=== PATIENT | male | born 1965 | race Caucasian/White ===

== ENCOUNTER 2017-08-09 22:09 | Emergency (ER) | payer OTHER ==
[2017-08-09] MEDS ORDERED: Phenergan 25 MG INJ IV ONE (22:28)
[2017-08-09] MEDS ORDERED: Sodium Chloride 0.9% 1000 ML 1,000 ML IV SCH (22:30)
--- NOTE | 2017-08-09 22:40 | ERPHSYRPT ---
- History of Present Illness Time Seen by Provider: 08/09/17 22:23 Source: patient Exam Limitations: no limitations Physician History: FOR THE PAST 3 HOURS AFTER DRINKING THREE MONSTER ENERGY DRINKS PT HAS HAD TINGLING AND GENERALIZED WEAKNESS IN HIS EXTREMITIES; DENIES CHEST PAIN, SHORTNESS OF AIR, ABDOMINAL PAIN; ADMITS TO NAUSEA AND DRY HEAVES. Allergies/Adverse Reactions: pregabalin [From Lyrica] Allergy (Verified 08/09/17 22:15) Home Medications: B/P Med Unknown Name 08/09/17 [History] Gabapentin [Neurontin] 800 mg PO TID 08/09/17 [History] Hydrocodone Bit/Acetaminophen [Hydrocodon-Acetaminoph 7.5-325] 1 each PO [History] Hx Tetanus, Diphtheria Vaccination/Date Given: Yes Hx Influenza Vaccination/Date Given: No Hx Pneumococcal Vaccination/Date Given: No - Review of Systems Constitutional: Weakness (GENERALIZED) Abdominal/Gastrointestinal: Nausea, Other (DRY HEAVES) Neurological: Sensory Changes (TINGLING IN EXTREMITIES) All Other Systems: Reviewed and Negative - Past Medical History Pertinent Past Medical History: Yes Neurological History: No Pertinent History ENT History: No Pertinent History Cardiac History: No Pertinent History Respiratory History: COPD, Emphysema Endocrine Medical History: No Pertinent History Musculoskeletal History: No Pertinent History, Osteoporosis, Other GI Medical History: No Pertinent History History: No Pertinent History Psycho-Social History: Depression Male Reproductive Disorders: No Pertinent History Other Medical History: Chronic back pain - Past Surgical History Past Surgical History: Yes Neuro Surgical History: No Pertinent History Cardiac: No Pertinent History Respiratory: No Pertinent History Gastrointestinal: No Pertinent History Genitourinary: No Pertinent History Musculoskeletal: Orthopedic Surgery Male Surgical History: No Pertinent History Other Surgical History: multiple back surgeries - traumatic injury of the feet. JAW BROKE A CHILD-6 MONTHS IN A W/C - Social History Smoking Status: Current every day smoker Exposure to second hand smoke: No Drug Use: none Patient Lives Alone: No - Nursing Vital Signs Nursing Vital Signs: Initial Vital Signs Temperature 97.6 F 08/09/17 22:19 Pulse Rate 94 H 08/09/17 22:19 Respiratory Rate 20 08/09/17 22:19 Blood Pressure 155/85 08/09/17 22:19 O2 Sat by Pulse Oximetry 98 08/09/17 22:19 Pain Scale Pain Intensity 0 - Physical Exam General Appearance: alert, anxiety Eye Exam: PERRL/EOMI Ears, Nose, Throat Exam: TMs normal, moist mucous membranes, pharyngeal erythema Neck Exam: normal inspection Respiratory Exam: lungs clear Cardiovascular Exam: normal heart sounds Gastrointestinal/Abdomen Exam: soft, normal bowel sounds Back Exam: normal range of motion Extremity Exam: normal inspection, No pedal edema Neurologic Exam: alert, cooperative Skin Exam: other (FACE FLUSHED) - Course Nursing assessment & vital signs reviewed: Yes EKG Interpreted by Me: RATE (64), Sinus Rhythm, NORMAL AXIS, NORMAL INTERVALS - Radiology Exams Chest X-ray Interpretation: Interpreted by me, No Pneumonia - CT Exams Head CT Interpretation: Tele-radiologist Report (NO ACUTE FINDINGS) Ordered Tests: Active Orders 24 hr Category Date Time Status Order Dispatcher STAT Care 08/09/17 22:31 Active Clean Catch Urine Specimen STAT Care 08/09/17 22:28 Active EKG-ER Only STAT Care 08/09/17 22:28 Active IV Insertion STAT Care 08/09/17 22:28 Active Pulse Oximetry (ED) STAT Care 08/09/17 22:28 Active CHEST 2 VIEWS (PA AND LAT) Stat Exams 08/09/17 22:31 Taken HEAD WITHOUT CONTRAST [CT] Stat Exams 08/09/17 22:34 Taken AMYLASE Stat Lab 08/09/17 22:40 Completed CBC W DIFF Stat Lab 08/09/17 22:40 Completed CMP Stat Lab 08/09/17 22:40 Completed ETHYL ALCOHOL Stat Lab 08/09/17 22:40 Completed LIPASE Stat Lab 08/09/17 22:40 Completed MAGNESIUM Stat Lab 08/09/17 22:40 Completed NT PRO BNP Stat Lab 08/09/17 22:40 Completed TROPONIN Q3H Lab 08/09/17 22:40 Completed TROPONIN Q3H Lab 08/10/17 01:30 Ordered TROPONIN Q3H Lab 08/10/17 04:30 Ordered TROPONIN Q3H Lab 08/10/17 07:30 Ordered TROPONIN Q3H Lab 08/10/17 10:30 Ordered UA W/RFX UR CULTURE Stat Lab 08/09/17 23:30 Completed Urine Triage Profile Stat Lab 08/09/17 23:30 Completed Medication Summary Generic Name Dose Route Start Last Admin Trade Name Freq PRN Reason Stop Dose Admin Sodium Chloride 1,000 mls @ 100 mls/hr 08/09/17 22:30 08/09/17 22:47 Sodium Chloride 0.9% 1000 Ml IV 09/08/17 22:29 100 mls/hr .Q10H IVETTE Administration Magnesium Oxide 400 mg 08/10/17 10:00 Mag-Ox 400 PO 09/09/17 09:59 BID IVETTE Discontinued Medications Generic Name Dose Route Start Last Admin Trade Name Cierra PRN Reason Stop Dose Admin Promethazine HCl 12.5 mg 08/09/17 22:28 08/09/17 22:47 Phenergan 25 Mg Inj IV 08/09/17 22:29 12.5 mg STAT ONE Administration Promethazine HCl Confirm 08/09/17 22:44 Phenergan 25 Mg Inj Administered 08/09/17 22:45 Dose 25 mg .ROUTE .STK-MED ONE Lab/Rad Data: Laboratory Result Diagrams 08/09/17 22:40 08/09/17 22:40 Laboratory Results 08/09/17 08/09/17 08/09/17 Range/Units 23:30 23:30 22:40 WBC (4.0-10.5) K/mm3 RBC (4.1-5.6) M/mm3 Hgb (12.5-18.0) gm/dl Hct (42-50) % MCV (78-100) fl MCH (26-32) pg MCHC (32-36) g/dl RDW (11.5-14.0) % Plt Count (150-450) K/mm3 MPV (6-9.5) fl Gran % (36.0-66.0) % Lymphocytes % (24.0-44.0) % Monocytes % (0.0-12.0) % Eosinophils % (0.00-5.0) % Basophils % (0.0-0.4) % Basophils # (0-0.4) Sodium (136-145) mEq/L Potassium (3.5-5.1) mEq/L Chloride (98-107) mEq/L Carbon Dioxide (21-32) mEq/L Anion Gap (5-15) MEQ/L BUN (9-20) mg/dL Creatinine (0.55-1.30) mg/dl Estimated GFR ML/MIN Glucose (70-110) MG/DL Calcium (8.5-10.1) mg/dL Magnesium (1.8-2.4) mg/dL Total Bilirubin (0.2-1.0) mg/dL AST (15-37) U/L ALT (12-78) U/L Alkaline Phosphatase (46-116) U/L Troponin I < 0.017 (0.000-0.056) ng/ml NT-Pro-B Natriuret Pep (0-125) pg/ml Serum Total Protein (6.4-8.2) gm/dL Albumin (3.4-5.0) g/dL Amylase (25-115) U/L Lipase (73-393) U/L Ur Collection Type CLEAN CATCH Urine Color JOSE ELIAS (YELLOW) Urine Appearance CLEAR (CLEAR) Urine pH 5.0 (5-6) Ur Specific Greene 1.015 (1.005-1.025) Urine Protein NEGATIVE (Negative) Urine Ketones NEGATIVE (NEGATIVE) Urine Blood NEGATIVE (0-5) Luis Daniel/ul Urine Nitrite NEGATIVE (NEGATIVE) Urine Bilirubin NEGATIVE (NEGATIVE) Urine Urobilinogen NORMAL (0-1) mg/dL Ur Leukocyte Esterase NEGATIVE (NEGATIVE) Urine Glucose NEGATIVE (NEGATIVE) mg/dL Urine Opiates Level NEG. (NEGATIVE) Ur Methadone NEG. (NEGATIVE) Urine Barbiturates NEG. (NEGATIVE) Ur Phencyclidine (PCP) NEG. (NEGATIVE) Urine Amphetamine NEG. (NEGATIVE) U Benzodiazepine Level NEG. (NEGATIVE) Urine Cocaine NEG. (NEGATIVE) Urine Marijuana (THC) NEG. (NEGATIVE) Ethyl Alcohol (0.00-0.01) % Specimen Received 08/09/17:0710 08/09/17 08/09/17 Range/Units 22:40 22:40 WBC 14.9 H (4.0-10.5) K/mm3 RBC 5.27 (4.1-5.6) M/mm3 Hgb 18.6 H (12.5-18.0) gm/dl Hct 52.1 H (42-50) % MCV 98.9 (78-100) fl MCH 35.2 H (26-32) pg MCHC 35.7 (32-36) g/dl RDW 15.3 H (11.5-14.0) % Plt Count 314 (150-450) K/mm3 MPV 9.8 H (6-9.5) fl Gran % 72.1 H (36.0-66.0) % Lymphocytes % 18.4 L (24.0-44.0) % Monocytes % 8.5 (0.0-12.0) % Eosinophils % 0.6 (0.00-5.0) % Basophils % 0.4 (0.0-0.4) % Basophils # 0.06 (0-0.4) Sodium 141 (136-145) mEq/L Potassium 3.8 (3.5-5.1) mEq/L Chloride 101 (98-107) mEq/L Carbon Dioxide 17.9 L (21-32) mEq/L Anion Gap 25.4 H (5-15) MEQ/L BUN 6 L (9-20) mg/dL Creatinine 0.94 (0.55-1.30) mg/dl Estimated GFR > 60 ML/MIN Glucose 128 H (70-110) MG/DL Calcium 9.1 (8.5-10.1) mg/dL Magnesium 1.5 L (1.8-2.4) mg/dL Total Bilirubin 0.50 (0.2-1.0) mg/dL AST 53 H (15-37) U/L ALT 50 (12-78) U/L Alkaline Phosphatase 122 H (46-116) U/L Troponin I (0.000-0.056) ng/ml NT-Pro-B Natriuret Pep 29 (0-125) pg/ml Serum Total Protein 7.4 (6.4-8.2) gm/dL Albumin 3.6 (3.4-5.0) g/dL Amylase 36 (25-115) U/L Lipase 66 L (73-393) U/L Ur Collection Type Urine Color (YELLOW) Urine Appearance (CLEAR) Urine pH (5-6) Ur Specific Greene (1.005-1.025) Urine Protein (Negative) Urine Ketones (NEGATIVE) Urine Blood (0-5) Luis Daniel/ul Urine Nitrite (NEGATIVE) Urine Bilirubin (NEGATIVE) Urine Urobilinogen (0-1) mg/dL Ur Leukocyte Esterase (NEGATIVE) Urine Glucose (NEGATIVE) mg/dL Urine Opiates Level (NEGATIVE) Ur Methadone (NEGATIVE) Urine Barbiturates (NEGATIVE) Ur Phencyclidine (PCP) (NEGATIVE) Urine Amphetamine (NEGATIVE) U Benzodiazepine Level (NEGATIVE) Urine Cocaine (NEGATIVE) Urine Marijuana (THC) (NEGATIVE) Ethyl Alcohol < 0.010 (0.00-0.01) % Specimen Received - Departure Time of Disposition: 23:54 Departure Disposition: Home Clinical Impression: WEAKNESS, DYSESTHESIA, HYPOMAGNESEMIA Condition: Stable Critical Care Time: No Referrals: DOCTOR,NO FAMILY [Primary Care Provider] - Instructions: Numbness/tingling Additional Instructions: FOLLOW UP WITH PRIVATE DOCTOR TOMORROW. DO NOT DRINK "ENERGY DRINKS".
[2017-08-09] MEDS ORDERED: Phenergan 25 MG INJ ONE (22:44)
[2017-08-09] MEDS ORDERED: Sodium Chloride 0.9% 1000 ML 1,000 ML ONE (22:44)
[2017-08-09 22:48] LABS: BASOPHIL % 0.4 % (0.0-0.4); Eosinophil % 0.6 % (0.00-5.0); Granulocytes % 72.1 % (36.0-66.0); Lymphocytes % 18.4 % (24.0-44.0); Mean Cell Volume 98.9 fl (78-100); Mean Platelet Volume 9.8 fl (6-9.5); Monocytes % 8.5 % (0.0-12.0); Platelet Count 314 K/mm3 (150-450); Red Blood Count 5.27 M/mm3 (4.1-5.6); Red Cell Distribution Width 15.3 % (11.5-14.0); White Blood Count 14.9 K/mm3 (4.0-10.5)
[2017-08-09 22:50] LABS: Mean Corpuscular Hemoglobin 35.2 pg (26-32)
[2017-08-09 23:28] LABS: ALBUMIN 3.6 g/dL (3.4-5.0); ALKALINE PHOSPHATASE 122 U/L (46-116); ANION GAP 25.4 MEQ/L (5-15); BLOOD UREA NITROGEN 6 mg/dL (9-20); CHLORIDE 101 mEq/L (98-107); Carbon Dioxide 17.9 mEq/L (21-32); ETHYL ALCOHOL < 0.010 % (0.00-0.01); Glucose 128 MG/DL (70-110); LIPASE 66 U/L (73-393); MAGNESIUM 1.5 mg/dL (1.8-2.4); Potassium 3.8 mEq/L (3.5-5.1); SGOT/AST 53 U/L (15-37); SGPT/ALT 50 U/L (12-78); SODIUM 141 mEq/L (136-145); Total Protein 7.4 gm/dL (6.4-8.2)
[2017-08-09 23:36] LABS: ADD URINE CULTURE? NO (NO); Bilirubin NEGATIVE (NEGATIVE); Blood NEGATIVE Ery/ul (0-5); COMPLETE URINE MICROSCOPIC? NO; Collection Type CLEAN CATCH; Glucose NEGATIVE (NEGATIVE); Leukocyte Esterase NEGATIVE (NEGATIVE)
[2017-08-09] MEDS ORDERED: MAG-OX 400 ONE (23:57)
[2017-08-09] MEDS ORDERED: Zofran 4 MG/2 ML VIAL IV ONE (23:59)
[2017-08-10] MEDS ORDERED: Zofran 4 MG/2 ML VIAL ONE
[2017-08-10 00:27] VITALS: BP 127/75; PULSE 74; O2SAT 96
--- NOTE | 2017-08-10 08:55 | XRAY ---
Indication: Dizziness. Hyperesthesia. Comparison: None 2 view chest hyperinflated and clear. Heart is not enlarged. Vascularity normal. Bony thorax intact. Impression: Nonacute hyperinflated chest.
--- NOTE | 2017-08-10 08:57 | XRAY ---
Indication: Vomiting and gagging. Hyperesthesia. Dizziness. Multiple contiguous axial images obtained through the head without contrast. Comparison: None Normal appearing brain parenchyma, ventricles, and bony calvarium. Mild mucosal thickening of both ethmoid and lesser degree both sphenoid sinuses. Remaining visualized paranasal sinuses and mastoid air cells clear. Impression: Normal CT head without contrast exam. Incidental paranasal sinus disease. Comment: Preliminary interpretation was made by [facility]. No discrepancy. CTDI 67.80
[2017-08-10] MEDS ORDERED: MAG-OX 400 PO SCH (10:00)
== END 2017-08-10 00:30 | disposition home or self-care (01) ==
LOC: ED 22:09
DX: R53.1 Weakness (principal); R20.8 Other disturbances of skin sensation; E83.42 Hypomagnesemia; Z79.899 Other long term (current) drug therapy; Z79.891 Long term (current) use of opiate analgesic; R20.2 Paresthesia of skin; R11.0 Nausea
CPT/HCPCS: 36000; 36415; 70450; 71020; 80053; 80307; 81002; 82150; 83690; 83735; 83880; 84484; 85025; 93005; 93041; 96360; 96374; 96375; 99284; G0481; J2405; J2550; A9270-GY

== ENCOUNTER 2018-01-14 08:51 | Emergency (ER) | payer OTHER ==
--- NOTE | 2018-01-14 09:24 | ERPHSYRPT ---
- History of Present Illness Time Seen by Provider: 01/14/18 09:14 Source: patient Exam Limitations: no limitations Patient Subjective Stated Complaint: pulling up fence post yesterday and the post struck him in the left lower ribs Triage Nursing Assessment: ambulated to room per self. skin w/d, color normal, resp shallow, guarding ribs. unable to take a deep breath. Physician History: The patient is a 52-year-old male with his mother complaining of injuring his left ribs while trying to pull a wooden fence post of the ground yesterday. He bent over and pulled the square 4 x 4 wooden fence post between his left arm and his left chest and when he pulled the fence post, it slipped and struck him on the left side of his chest beneath his arm pit. He didn't sleep well all night because of the pain. It hurts to take a breath or move his trunk from side to side. His past medical history is significant for COPD. Timing/Duration: yesterday Severity: moderate Modifying Factors: Improves With: movement Associated Symptoms: denies symptoms Allergies/Adverse Reactions: pregabalin [From Lyrica] Allergy (Verified 01/14/18 09:01) Home Medications: Gabapentin [Neurontin] 800 mg PO TID 08/09/17 [History] Albuterol 2.5 mg/3 ml Neb [Proventil 2.5 mg/3 ml Neb] 2.5 mg IH QID [History] Albuterol Sulfate [Ventolin Hfa] 90 mcg IH QID 01/14/18 [History] Baclofen [Baclofen] 10 mg PO BID 01/14/18 [History] Hx Tetanus, Diphtheria Vaccination/Date Given: Yes Hx Influenza Vaccination/Date Given: Yes Hx Pneumococcal Vaccination/Date Given: No - Review of Systems Constitutional: No Fever, No Chills Eyes: No Symptoms Ears, Nose, & Throat: No Symptoms Respiratory: No Cough, No Dyspnea Cardiac: No Chest Pain, No Edema, No Syncope Abdominal/Gastrointestinal: No Abdominal Pain, No Nausea, No Vomiting, No Diarrhea Genitourinary Symptoms: No Dysuria Musculoskeletal: Injury Skin: No Rash Neurological: No Dizziness, No Focal Weakness, No Sensory Changes Psychological: No Symptoms Endocrine: No Symptoms Hematologic/Lymphatic: No Symptoms Immunological/Allergic: No Symptoms All Other Systems: Reviewed and Negative - Past Medical History Pertinent Past Medical History: Yes Neurological History: No Pertinent History ENT History: No Pertinent History Cardiac History: No Pertinent History Respiratory History: COPD, Emphysema Endocrine Medical History: No Pertinent History Musculoskeletal History: No Pertinent History, Osteoporosis, Other GI Medical History: No Pertinent History History: No Pertinent History Psycho-Social History: Depression Male Reproductive Disorders: No Pertinent History Other Medical History: Chronic back pain - Past Surgical History Past Surgical History: Yes Neuro Surgical History: No Pertinent History Cardiac: No Pertinent History Respiratory: No Pertinent History Gastrointestinal: No Pertinent History Genitourinary: No Pertinent History Musculoskeletal: Orthopedic Surgery Male Surgical History: No Pertinent History Other Surgical History: multiple back surgeries - traumatic injury of the feet. JAW BROKE A CHILD-6 MONTHS IN A W/C - Social History Smoking Status: Current every day smoker How long have you smoked: 35 Exposure to second hand smoke: No Drug Use: none Patient Lives Alone: No - Nursing Vital Signs Nursing Vital Signs: Initial Vital Signs Temperature 98.4 F 01/14/18 08:57 Pulse Rate 82 01/14/18 08:57 Respiratory Rate 16 01/14/18 08:57 Blood Pressure 129/88 01/14/18 08:57 O2 Sat by Pulse Oximetry 95 01/14/18 08:57 Pain Scale Pain Intensity 10 - Physical Exam General Appearance: mild distress Eye Exam: PERRL/EOMI, eyes nml inspection Ears, Nose, Throat Exam: normal ENT inspection, TMs normal, pharynx normal, moist mucous membranes Neck Exam: normal inspection, non-tender, supple, full range of motion Respiratory Exam: chest tenderness (tenderness to left mid lateral ribs. no bruising or swelling.), wheezing Cardiovascular Exam: regular rate/rhythm, normal heart sounds, normal peripheral pulses Gastrointestinal/Abdomen Exam: soft, normal bowel sounds, No tenderness, No mass Rectal Exam: not done Back Exam: normal inspection, normal range of motion, No CVA tenderness, No vertebral tenderness Extremity Exam: normal inspection, normal range of motion, pelvis stable Neurologic Exam: alert, oriented x 3, cooperative, normal mood/affect, nml cerebellar function, nml station & gait, sensation nml, No motor deficits Skin Exam: normal color, warm, dry, No rash Lymphatic Exam: No adenopathy SpO2 Interpretation: normal SpO2: 95 Oxygen Delivery: Room Air - Radiology Exams Chest X-ray Interpretation: Reviewed by me, Teleradiologist Report, Other (mild accentuation of interstitial lung markings in lower 2/3 each lung: mild interstitial lung disease. Per Dr Teran.) Left Ribs X-ray Interpretation: Reviewed by me, Teleradiologist Report, Non-displaced Fracture (left 4th rib fracture per DR Teran.) Ordered Tests: Active Orders 24 hr Category Date Time Status CHEST 2 VIEWS (PA AND LAT) Stat Exams 01/14/18 09:31 Completed RIBS UNILATERAL Stat Exams 01/14/18 09:30 Completed Medication Summary Discontinued Medications Generic Name Dose Route Start Last Admin Trade Name Freq PRN Reason Stop Dose Admin Ketorolac Tromethamine 60 mg 01/14/18 09:25 01/14/18 09:44 Toradol 30 Mg Injection IM 01/14/18 09:26 60 mg STAT ONE Administration Ketorolac Tromethamine Confirm 01/14/18 09:33 Toradol 30 Mg Injection Administered 01/14/18 09:34 Dose 60 mg .ROUTE .STK-MED ONE - Progress Progress: improved Counseled pt/family regarding: diagnosis, need for follow-up, rad results - Departure Time of Disposition: 10:57 Departure Disposition: Home Clinical Impression: Left rib fracture, Bronchitis Condition: Stable Critical Care Time: No Additional Instructions: You have a fracture of one of your left ribs. You also have bronchitis. You were given Toradol 60 mg by IM in the ER. Take doxycycline 100 mg 2 times a day for 10 days. Take Tessalon Perle 100 mg every 8 hours as needed for cough. Take Tylenol No. 3 one to 2 tablets every 4-6 hours as needed for pain. You may also take Tylenol and ibuprofen as needed for pain. Follow-up with local medical doctor next week. Prescriptions: Benzonatate [Tessalon Perle] 100 mg PO Q8H PRN PRN #20 capsule PRN Reason: Cough Codeine Phosphate/APAP #3 [Tylenol #3 Tablet] 1 tab PO Q4-6HPRN PRN #10 tablet PRN Reason: Pain Doxycycline Hyclate 100 mg [Vibramycin 100 MG] 1 tab PO BID #20 tab
[2018-01-14] MEDS ORDERED: TORAdol 30 mg Injection IM ONE (09:25)
[2018-01-14] MEDS ORDERED: TORAdol 30 mg Injection ONE (09:33)
--- NOTE | 2018-01-14 10:20 | XRAY ---
Exam: Two-view chest from 01/14/2018. Comparison: Two-view chest from 08/09/2017. Indication: Wheezing for the past few days. Findings: Upright PA and lateral chest films are submitted for evaluation. The heart size and contour are normal. The afshin and mediastinal structures appear unremarkable. There is some mild accentuation of the interstitial lung markings, particularly within the lower two thirds of each lung. This may reflect mild interstitial lung disease (acute or chronic). Correlate clinically. However, I see no air space infiltrates or pleural fluid. No vascular congestion or pneumothorax is seen. No acute osseous process is seen. Impression: 1. There is mild accentuation of the interstitial lung markings within lower two thirds of each lung. Consider mild interstitial lung disease (acute or chronic). I see no air space infiltrates or other active cardiopulmonary disease.
[2018-01-14 10:30] VITALS: PULSE 70
--- NOTE | 2018-01-14 10:41 | XRAY ---
Exam: 4 view left rib series (5 films) from 01/14/2018. Comparison: None. Indication: Left lower rib pain after hitting himself with a 4 x 4 post; complains of pain within the mid to lower left ribs. Findings: 2 AP images, an LPO image, an opposite oblique image, and a coned-down AP image of the left lower rib cage were obtained. On the steep LPO image, there is equivocal evidence of a subtle nondisplaced fracture at the anterior lateral aspect of the left fourth rib. I see no other definite fracture line or cortical step-off deformity to suggest a displaced fracture. No left-sided pneumothorax or pleural effusion is seen. Impression: 1. There is equivocal evidence of subtle nondisplaced cortical fracture involving the anterior lateral aspect of the left fourth rib on the steep LPO image. No other definite left rib fracture line or cortical step-off deformity to suggest a displaced fracture is seen. Note : If left rib pain persists or is more extensive than that suggested by this report, a radionuclide bone scan in 1 week could be considered.
[2018-01-14 11:16] VITALS: BP 110/78; O2SAT 97
== END 2018-01-14 11:16 | disposition home or self-care (01) ==
LOC: ED 08:51
DX: S22.32XA Fracture of one rib, left side, initial encounter for closed fracture (principal); W22.8XXA Striking against or struck by other objects, initial encounter; J40 Bronchitis, not specified as acute or chronic
CPT/HCPCS: 71046; 71100; 96372; 99284; J1885

== ENCOUNTER 2018-12-02 09:29 | Emergency (ER) | payer OTHER ==
[2018-12-02] MEDS ORDERED: Amidate 20 MG/10 ML IV ONE (09:30)
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
[2018-12-02] MEDS ORDERED: VALIUM 10 MG/2 ML SYRINGE IV ONE (09:55)
[2018-12-02] MEDS ORDERED: Sodium Chloride 0.9% 1000 ML 1,000 ML IV STA (09:55)
[2018-12-02] MEDS ORDERED: Sodium Chloride 0.9% 1000 ML 1,000 ML ONE ×2 (10:01→11:12)
[2018-12-02 10:04] LABS: BASOPHIL % 0.2 % (0.0-0.4); Basophil (Absolute #) 0.02 (0-0.4); Eosinophil % 0.6 % (0.00-5.0); Eosinophil (Absolute #) 0.07 (0-0.5); Granulocytes % 79.2 % (36.0-66.0); Hematocrit 47.3 % (42-50); Hemoglobin 16.6 gm/dl (12.5-18.0); Lymphocyte (Absolute #) 1.13 (1.0-4.6); Lymphocytes % 10.3 % (24.0-44.0); Mean Cell Volume 102.8 fl (78-100); Mean Corpuscular Hemoglobin 36.1 pg (26-32); Mean Corpuscular Hgb Concent. 35.1 g/dl (32-36); Mean Platelet Volume 10.2 fl (6-9.5); Monocyte (Absolute #) 1.07 (0.0-1.3); Monocytes % 9.7 % (0.0-12.0); Platelet Count 135 K/mm3 (150-450); Red Cell Distribution Width 15.4 % (11.5-14.0)
[2018-12-02 10:17] LABS: ALBUMIN 3.1 g/dL (3.5-5.0); ALKALINE PHOSPHATASE 267 U/L (38-126); ANION GAP 17.9 MEQ/L (5-15); BLOOD UREA NITROGEN 4 mg/dL (9-20); CHLORIDE 96 mmol/L (98-107); Calcium 8.2 mg/dL (8.4-10.2); Carbon Dioxide 20 mmol/L (22-30); Glucose 152 mg/dL (74-106); SGOT/AST 235 U/L (17-59); SODIUM 131 mmol/L (137-145); Total Protein 6.2 g/dL (6.3-8.2)
[2018-12-02] MEDS ORDERED: MORPHINE SULFATE 4 MG INJ ONE ×2 (10:17→10:52)
[2018-12-02] MEDS ORDERED: MORPHINE SULFATE 4 MG INJ IV ONE (10:18)
--- NOTE | 2018-12-02 10:22 | XRAY ---
Indication: Pain following fall. Comparison: None 2 views of the right shoulder demonstrates anterior inferior humeral head dislocation. No other bony, articular, or soft tissue abnormalities.
[2018-12-02 10:24] LABS: SGPT/ALT 100 U/L (0-50)
[2018-12-02] MEDS ORDERED: VERSED 5 MG/5 ML ONE ×2 (10:58→12:19)
--- NOTE | 2018-12-02 11:27 | XRAY ---
Indication: Post reduction. Comparison: Taken earlier in the day. Single AP right shoulder demonstrates successful reduction of previous humeral head dislocation. No other bony, articular, or soft tissue abnormalities.
--- NOTE | 2018-12-02 11:59 | XRAY ---
Indication: Pain following fall. Seizure. Multiple contiguous axial images obtained through the head without contrast. Comparison: August 09, 2017. Again normal appearing brain parenchyma, ventricles, and bony calvarium. Visualized paranasal sinuses and mastoid are cells are clear. Impression: Stable normal CT head without contrast exam. CTDI 50.75
--- NOTE | 2018-12-02 12:03 | XRAY ---
Indication: Pain following fall. Seizure. Multiple contiguous axial images obtained through the facial bones. Sagittal and coronal reformatted images obtained. Comparison: None Patient is edentulous. Nondisplaced fracture involving the spine of the maxilla. Bilateral TMJ dislocation anteriorly. No other fracture, suspicious bony lesions, or radiopaque foreign body. Orbits including roof, garay, and floors intact. Minimal mucosal thickening floor of the left maxillary sinus. Remaining paranasal sinuses and nasal passages are clear. Minimal nasal septal deviation to the left. Visualized noncontrasted soft tissues including orbits unremarkable. Visualized cervical spine intact. Impression: 1. Nondisplaced fracture spine of the maxilla. 2. Bilateral TMJ anterior dislocation. 3. Minimal left maxillary sinus disease. CTDI is 59.47
[2018-12-02] MEDS ORDERED: VERSED 5 MG/5 ML IV ONE ×2 (12:33→13:06)
--- NOTE | 2018-12-02 13:09 | XRAY ---
Indication: Postreduction TMJ dislocation. 4 views of the facial bones demonstrates stable bilateral TMJ anterior dislocation with respect to CT of the same day. Patient again edentulous with left mandible fixation wire. No other bony, articular, or soft tissue abnormalities.
[2018-12-02 13:56] VITALS: PULSE 74; O2SAT 97
[2018-12-02 14:24] VITALS: BP 124/77
--- NOTE | 2018-12-02 14:28 | XRAY ---
Indication: Status post fall. Seizure. Multiple contiguous axial images obtained through the cervical spine. Sagittal and coronal reformatted images obtained. Comparison: None Axial images negative for acute fracture, suspicious bony lesions, or spinal canal stenosis. Sagittal and coronal reformatted images demonstrates normal alignment. Minimal C5-C6 disc space narrowing. No acute compression fracture, subluxation, or jumped facet. Normal-appearing craniocervical junction. Visualized noncontrasted soft tissues unremarkable. Incidental biapical pulmonary emphysema. CT head reported separately. Impression: 1. Minimal C5-C6 degenerative disc disease and pulmonary emphysema. 2. Remaining CT cervical spine is negative. CT DI 51.42
[2018-12-02 15:16] LABS: Appearance CLEAR (CLEAR); Bilirubin NEGATIVE (NEGATIVE); Blood NEGATIVE Ery/ul (0-5); Glucose NEGATIVE (NEGATIVE); Ketones NEGATIVE (NEGATIVE); Leukocyte Esterase NEGATIVE (NEGATIVE); Mucus SLIGHT /HPF (NEGATIVE); Nitrite NEGATIVE (NEGATIVE); Protein,Urine Dip NEGATIVE (Negative); Specific Gravity 1.011 (1.005-1.025); Urobilinogen 4 mg/dL (0-1); WBC 0-2 /HPF (0-5)
[2018-12-02 15:29] LABS: Amphetamine,Urine NEGATIVE (NEGATIVE); Barbiturate,Urine NEGATIVE (NEGATIVE); Benzodiazepine,Urine POSITIVE (NEGATIVE); Cocaine,Urine NEGATIVE (NEGATIVE); Methadone,Urine NEGATIVE (NEGATIVE); Opiate,Urine POSITIVE (NEGATIVE); PCP,Urine NEGATIVE (NEGATIVE); THC,Urine NEGATIVE (NEGATIVE)
== END 2018-12-02 15:08 | disposition short-term general hospital (02) ==
LOC: ED 09:29
DX: S03.03XA Dislocation of jaw, bilateral, initial encounter (principal); S43.004A Unspecified dislocation of right shoulder joint, initial encounter; W18.39XA Other fall on same level, initial encounter; Y93.9 Activity, unspecified; R41.0 Disorientation, unspecified; R68.84 Jaw pain; M25.511 Pain in right shoulder; M54.9 Dorsalgia, unspecified; G89.29 Other chronic pain; Z79.899 Other long term (current) drug therapy; J44.9 Chronic obstructive pulmonary disease, unspecified; M81.0 Age-related osteoporosis without current pathological fracture; F32.9 Major depressive disorder, single episode, unspecified
CPT/HCPCS: 21480; 23650; 36000; 36415; 70150; 70450; 70486; 72125; 73030; 80053; 80307; 81001; 85025; 93041; 94799; 96360; 96374; 96375; 96376; 99285; J2250; J2270; J3360; G0480

== ENCOUNTER 2019-08-06 15:13 | Emergency (ER) | payer OTHER ==
[2019-08-06] MEDS ORDERED: Sodium Chloride 0.9% 1000 ML 1,000 ML IV STA ×2 (15:26→15:51)
[2019-08-06] MEDS ORDERED: Zofran 4 MG/2 ML VIAL IV ONE (15:26)
[2019-08-06] MEDS ORDERED: PROTONIX 40 MG IV*** 80 MG in Sodium Chloride 0.9% 500 ML 500 ML IV SCH (15:30)
[2019-08-06] MEDS ORDERED: Sodium Chloride 0.9% 500 ML 500 ML IV ONE (15:32)
[2019-08-06] MEDS ORDERED: Zofran 4 MG/2 ML VIAL ONE (15:32)
[2019-08-06] MEDS ORDERED: PROTONIX 40 MG IV IV ONE (15:32)
[2019-08-06] MEDS ORDERED: Sodium Chloride 0.9% 1000 ML 1,000 ML ONE ×2 (15:33→15:53)
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
[2019-08-06 15:46] LABS: Lactic Acid 3.6 (0.4-2.0)
[2019-08-06 15:53] LABS: BASOPHIL % 0.5 % (0.0-0.4); Basophil (Absolute #) 0.05 (0-0.4); Eosinophil % 1.8 % (0.00-5.0); Granulocyte Absolute (ANC) 6.61 (1.4-6.9); Hematocrit 38.1 % (42-50); Hemoglobin 13.1 gm/dl (12.5-18.0); Lymphocyte (Absolute #) 3.43 (1.0-4.6); Lymphocytes % 31.2 % (24.0-44.0); Mean Cell Volume 104.4 fl (78-100); Mean Corpuscular Hgb Concent. 34.4 g/dl (32-36); Mean Platelet Volume 9.2 fl (6-9.5); Monocyte (Absolute #) 0.72 (0.0-1.3); Monocytes % 6.5 % (0.0-12.0); Platelet Count 356 K/mm3 (150-450); Red Blood Count 3.65 M/mm3 (4.1-5.6); Red Cell Distribution Width 15.3 % (11.5-14.0)
[2019-08-06 15:55] LABS: Mean Corpuscular Hemoglobin 35.8 pg (26-32)
[2019-08-06 16:03] LABS: PROTIME 11.3 SECONDS (8.83-12.87)
[2019-08-06 16:06] LABS: ALKALINE PHOSPHATASE 116 U/L (38-126); ANION GAP 13.8 MEQ/L (5-15); BLOOD UREA NITROGEN 14 mg/dL (9-20); CHLORIDE 105 mmol/L (98-107); Calcium 8.5 mg/dL (8.4-10.2); Carbon Dioxide 20 mmol/L (22-30); Creatinine 1 0.65 mg/dL (0.66-1.25); Glucose 143 mg/dL (74-106); Potassium 3.4 mmol/L (3.5-5.1); SGOT/AST 38 U/L (17-59); SGPT/ALT 28 U/L (0-50); SODIUM 136 mmol/L (137-145); Total Protein 6.1 g/dL (6.3-8.2)
[2019-08-06 16:29] VITALS: O2SAT 99
[2019-08-06 16:44] LABS: ABO TYPING O; Antibody Screen NEGATIVE (NEGATIVE); RH TYPING POSITIVE
[2019-08-06 17:41] LABS: Appearance CLEAR (CLEAR); Bilirubin NEGATIVE (NEGATIVE); Blood NEGATIVE Ery/ul (0-5); Glucose NEGATIVE (NEGATIVE); Ketones NEGATIVE (NEGATIVE); Leukocyte Esterase NEGATIVE (NEGATIVE); Mucus SLIGHT /HPF (NEGATIVE); Nitrite NEGATIVE (NEGATIVE); Protein,Urine Dip NEGATIVE (Negative); Specific Gravity 1.032 (1.005-1.025); Urobilinogen NEGATIVE mg/dL (0-1); WBC 0-2 /HPF (0-5)
[2019-08-06 18:00] LABS: Bacteria NONE SEEN /HPF (NEGATIVE)
[2019-08-06 18:10] LABS: Amphetamine,Urine NEGATIVE (NEGATIVE); Barbiturate,Urine NEGATIVE (NEGATIVE); Benzodiazepine,Urine NEGATIVE (NEGATIVE); Cocaine,Urine NEGATIVE (NEGATIVE); Methadone,Urine NEGATIVE (NEGATIVE); Opiate,Urine NEGATIVE (NEGATIVE); PCP,Urine NEGATIVE (NEGATIVE); THC,Urine NEGATIVE (NEGATIVE)
[2019-08-06 18:52] VITALS: BP 108/69; PULSE 76
--- NOTE | 2019-08-06 20:23 | XRAY ---
Indication: Hematemesis. Multiple contiguous axial images obtained through the abdomen and pelvis using 100 cc Isovue 370 contrast only. Comparison: September 11, 2016. Lungs grossly clear. Heart is not enlarged. Stomach is stented with food/fluid. Small bowel loops again demonstrates mild diffuse fluid distention with fluid leveling, ileus versus enteritis. No free fluid/air. Stable 2 cm left lobe hepatic hemangioma and calcified splenic granulomas. Remaining liver, gallbladder, pancreas, spleen, adrenal glands, kidneys, ureters, and bladder appear unremarkable. There remains mild aortoiliac calcifications. No AAA or pathological retroperitoneal lymphadenopathy. Osseous structures intact again with L4-S1 fusion surgery and laminectomy. Impression: 1. New diffuse fluid distended small bowel loops with fluid leveling, ileus versus enteritis. 2. Stable hepatic hemangioma and evidence for old granulomatous disease. Comment: Preliminary interpretation was made by [facility]. No critical discrepancy. CTDI 10.06
== END 2019-08-06 19:43 | disposition short-term general hospital (02) ==
LOC: ED 15:13
DX: K92.0 Hematemesis (principal)
CPT/HCPCS: 36000; 36415; 74177; 80053; 80307; 81001; 82272; 83605; 85025; 85610; 85730; 86850; 86900; 86901; 96360; 96365; 96374; 99285; 99291; J2405

== ENCOUNTER 2023-11-06 15:29 | Emergency (ER) | payer OTHER ==
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
[2023-11-06 15:48] VITALS: TEMP 99.5
[2023-11-06] MEDS ORDERED: DUONEB 0.5-3 MG/3 ml Neb IH ONE ×2 (15:57→15:58)
[2023-11-06] MEDS ORDERED: solu-MEDROL 125 MG, Sterile H2O 10 ml 2 ML IV ONE ×2 (16:09)
[2023-11-06] MEDS ORDERED: Sodium Chloride 0.9% 1000 ML 1,000 ML IV SCH (16:15)
[2023-11-06] MEDS ORDERED: Sterile H2O 10 ml IJ ONE (16:18)
[2023-11-06] MEDS ORDERED: solu-MEDROL ONE (16:19)
[2023-11-06] MEDS ORDERED: Sodium Chloride 0.9% 1000 ML 1,000 ML ONE ×2 (16:19→21:53)
--- NOTE | 2023-11-06 16:25 | XRAY ---
Indication: Short of breath and cough. Comparison: July 06, 2018. Portable chest demonstrates new bilateral mid to lower lung patchy airspace disease left greater than right without consolidation/large effusion. Rule out Covid 19 pneumonia. Heart not enlarged with new right PICC line. Bony thorax intact.
[2023-11-06 16:35] LABS: Hematocrit 45.3 % (42-50); Hemoglobin 16.2 g/dL (12.5-18.0); Mean Cell Volume 94.4 fL (78-100); Mean Corpuscular Hemoglobin 33.8 pg (26-32); Mean Corpuscular Hgb Concent. 35.8 g/dL (32-36); Platelet Count 97 x10^3/uL (150-450); Red Cell Distribution Width 16.1 % (11.5-14.0)
[2023-11-06 16:43] LABS: White Blood Count 1.6 x10^3/uL (4.0-10.5)
[2023-11-06 16:56] LABS: ALBUMIN 3.5 g/dL (3.5-5.0); ANION GAP 14.2 MEQ/L (5-15); BILIRUBIN,TOTAL 0.9 mg/dL (0.2-1.3); Calcium 7.9 mg/dL (8.4-10.2); Creatinine 1 0.61 mg/dL (0.66-1.25); EST GLOMERULAR FILTRATION RATE 112.7 ML/MIN; MAGNESIUM 2.1 mg/dL (1.6-2.3); Potassium 3.5 mmol/L (3.5-5.1); Total Protein 7.1 g/dL (6.3-8.2)
[2023-11-06] MEDS ORDERED: HYDROCODONE-ACETAMIN 2.5-108/5 ML SOLUTION PO STA (17:02)
[2023-11-06 17:03] LABS: INR 0.95 (0.8-3.0); PROTIME 10.4 SECONDS (9.4-12.5)
[2023-11-06 17:27] LABS: D-DIMER QUANTITATIVE 1.09 mg/L (0.0-0.50)
[2023-11-06 17:46] LABS: INFLUENZA B NEGATIVE (NEGATIVE); RESPIRATORY SYNCTIAL VIRUS NEGATIVE (NEGATIVE); SARS-CoV-2 Xpert Express NEGATIVE (NEGATIVE)
[2023-11-06 17:49] LABS: Lymphocytes 20 % (24-44); Monocyte 5 % (0.0-12.0); Neutrophils 75 % (36.-66.); Platelet Estimate DECREASED (NORMAL); Total Cells Counted 100
[2023-11-06 17:49] LABS: INFLUENZA A POSITIVE (NEGATIVE)
[2023-11-06 17:50] LABS: ANISOCYTOSIS 1+; Poikilocytosis 1+
[2023-11-06] MEDS ORDERED: PROVENTIL 2.5 MG/3 ML NEB IH ONE ×2 (18:01→18:02)
[2023-11-06] MEDS ORDERED: HYDROCODONE-ACETAMIN 2.5-108/5 ML SOLUTION ONE (18:46)
[2023-11-06 20:01] LABS: POTASSIUM, URINE RANDOM 37.5 mmol/L (0.1-0.7)
[2023-11-06] MEDS ORDERED: ROCEPHIN 1 Gm-D5w 50 ml Bag** 1 G/50 ML IVPB IV STA (21:26)
[2023-11-06] MEDS ORDERED: Sodium Chloride 0.9% 1000 ML 1,000 ML IV STA (21:46)
[2023-11-06] MEDS ORDERED: ROCEPHIN 1 Gm-D5w 50 ml Bag** 1 G/50 ML IVPB IV ONE (21:54)
[2023-11-06 22:05] VITALS: BP 116/60; PULSE 76; RESP 20; O2SAT 94
--- NOTE | 2023-11-06 22:09 | XRAY ---
Indication: Short of breath. Chest heaviness. Elevated d-dimer. Multiple contiguous axial images obtained through the chest using 80 cc Isovue 370 contrast and PE protocol. Comparison: None Suboptimal opacification of the pulmonary arteries limits evaluation for pulmonary embolus. No obvious central pulmonary embolus. Heart not enlarged. Aorta is minimally arteriosclerotic without aneurysm/dissection.. Right arm PICC line terminates SVC. Tiny left hilar calcified nodes. No pathologic mediastinal/hilar lymphadenopathy. Lungs demonstrates moderate/advanced diffuse centrilobular pulmonary emphysema. Mid to lower lung cordero demonstrates patchy groundglass airspace disease greatest in left lower lobe. No consolidation or effusion. Bony thorax intact with mild degenerative changes throughout the spine. Limited upper abdomen demonstrates fatty liver. Impression: 1. Suboptimal contrast opacification limits evaluation for pulmonary embolus. No obvious central pulmonary embolus. 2. Bilateral mid to lower lung patchy groundglass airspace disease. Rule out Covid 19 pneumonia. Findings concordant with chest radiograph. 3. Chronic findings including pulmonary emphysema, arteriosclerotic disease, degenerative spondylosis, fatty liver, and old granulomatous disease.
== END 2023-11-06 22:30 | disposition short-term general hospital (02) ==
LOC: ED 15:29
DX: J10.1 Influenza due to other identified influenza virus with other respiratory manifestations (principal); D72.819 Decreased white blood cell count, unspecified; D69.6 Thrombocytopenia, unspecified; R91.8 Other nonspecific abnormal finding of lung field; E87.1 Hypo-osmolality and hyponatremia; R06.02 Shortness of breath; R05.9 Cough, unspecified; Z79.891 Long term (current) use of opiate analgesic; Z79.52 Long term (current) use of systemic steroids; Z79.899 Other long term (current) drug therapy; Z72.0 Tobacco use
CPT/HCPCS: 0241U; 36000; 36415; 71045; 71260; 80053; 83605; 83735; 83880; 83935; 84133; 84300; 84484; 85025; 85379; 85610; 87040; 93005; 93041; 94640; 96365; 96374; 99285; J0696; J2930; J7609; A9270-GY